=== PATIENT | male | born 1990 | race African-American/Black ===

== ENCOUNTER 2017-04-05 17:43 | Inpatient (IN) | payer OTHER ==
[~2017-04-05] VITALS: Ht 193 cm; Wt 86.2 kg
--- NOTE | ~2017-04-05 | HC ---
[facility] [place] [address] CONSULTATION Name: DAI LOVELL Room #: 432-P ADM IN M.R.#: [id number] Admission: 04/05/17 Attend Phys: Neal Hugo MD Discharge: Date of : 86 Report #: [id number] THIS REPORT FOR: //name// CC: Neal Bee [facility] physician/PCP REASON FOR CONSULTATION: I was asked to evaluate concerning flare up of hidradenitis suppurativa. HISTORY OF PRESENT ILLNESS: The patient was a 26-year-old with a 5-year history of hidradenitis suppurativa, mostly involving his axillary regions, but now has progressed down into his groin. He has previously undergone several surgeries with excision and skin grafting to his axilla regions. His groins flared up about a month or so ago. He has been seen by Dr. Kaur in General Surgery, [facility]. He was not able to assist with further surgery and he referred him to [facility]. He did place him on Augmentin and Bactrim. The patient states he has finished that about a week ago. No fever, chills or sweats. Continues to have increased pain and drainage in his groin. No fever, chills or sweats. REVIEW OF SYSTEMS: No cardiopulmonary, GI or complaints. ALLERGIES: None. MEDICATIONS: Now on vancomycin and Zosyn. PAST MEDICAL HISTORY: Hidradenitis and its subsequent treatments. FAMILY HISTORY: Noncontributory. SOCIAL HISTORY: He does smoke cigarettes. No significant alcohol intake. PHYSICAL EXAMINATION: VITAL SIGNS: Afebrile, hemodynamically stable. GENERAL: Alert, cooperative and pleasant, in no acute distress. HEENT: Unremarkable. CHEST: Clear. HEART: Regular. ABDOMEN: Soft and nontender. Axillary regions had previous skin grafting. No active skin lesions identified. In his groin, he has got multiple abscesses evident. There is purulent drainage from these regions. External genitalia, otherwise unremarkable. LABORATORY STUDIES: Blood cultures are negative today. Hemoglobin 12.8, white count 7.0, platelet count 232,000, differential unremarkable. Sodium 141, potassium 3.4, bicarbonate 31, creatinine 0.9, lactate 1.2, CRP 6. [address] [address] CONSULTATION Name: DAI LOVELL Room #: [facility] [place] .R.#: [id number] Admission: 04/05/17 Attend Phys: Neal Hugo MD Discharge: Date of : 86 Report #: [id number] IMPRESSION: Flare up of hidradenitis suppurativa. The patient will need further surgical debridement, IV antibiotic therapy and then further wound care. Would recommend surgical evaluation. We will culture his drainage. Continue with IV antibiotic therapy and begin Hibiclens showers. By: [id number] Ryan Bee MD /lei
[2017-04-05 17:56] VITALS: BP 125/75
[2017-04-05] MEDS ORDERED: BACTRIM DS TAB1 EACH (18:12)
[2017-04-05] MEDS ORDERED: CIPRO500 MG PO (18:13)
[2017-04-05] MEDS ORDERED: DOXYCYCLINE 10100 MG (18:13)
[2017-04-05] MEDS ORDERED: KEFLEX500 M1 PO (18:15)
[2017-04-05 19:26] LABS: ABSOLUTE NEUTROPHILS 5.4 thou/uL (1.4-8.2); BASOPHILS 0.7 % (0.0-2.0); EOSINOPHILS 0.7 % (0.0-3.0); HEMATOCRIT 42.7 % (42.0-52.0); LYMPHOCYTES 16.3 % (24.0-44.0); MCH 26.6 pg (26.0-34.0); MCHC 32.9 g/dL (28.0-37.0); MONOCYTES 8.6 % (1.0-8.0); PLATELET COUNT 257 thou/uL (150-400); POLYS 73.7 % (36.0-66.0); RBC 5.27 mil/uL (4.50-6.00); RDW 14.5 % (10.5-14.5); WBC 7.3 thou/uL (4.0-11.0)
[2017-04-05 19:27] LABS: MANUAL DIFF NO
[2017-04-05 19:37] LABS: CALCIUM 9.8 mg/dL (8.5-10.1); POTASSIUM 3.5 mmol/L (3.5-5.1)
[2017-04-05 20:44] VITALS: BP 123/88
[2017-04-05 22:19] VITALS: BP 116/86
[2017-04-06 05:25] VITALS: BP 106/74
[2017-04-06 06:07] LABS: HEMATOCRIT 39.6 % (42.0-52.0); HEMOGLOBIN 12.8 gm/dL (14.0-18.0); MCH 26.2 pg (26.0-34.0); MCHC 32.2 g/dL (28.0-37.0); MCV 81.5 fL (80.0-100.0); PLATELET COUNT 232 thou/uL (150-400); RBC 4.86 mil/uL (4.50-6.00); RDW 14.1 % (10.5-14.5)
[2017-04-06 06:24] LABS: CALCIUM 8.9 mg/dL (8.5-10.1); CREATININE 0.9 mg/dL (0.7-1.3); POTASSIUM 3.4 mmol/L (3.5-5.1)
[2017-04-06 06:31] LABS: MANUAL DIFF YES
[2017-04-06 09:00] LABS: ABSOLUTE NEUTROPHILS 4.5 thou/uL (1.4-8.2); PLATELET ESTIMATE NORMAL; TOTAL CELL COUNT 100
[2017-04-06 09:10] VITALS: BP 110/72
[2017-04-06 15:14] VITALS: BP 110/72
[2017-04-06] MEDS ORDERED: OXYCODONE HCL30 MG PO (15:31)
[2017-04-06 22:30] VITALS: BP 119/83
[2017-04-07 04:00] VITALS: BP 97/55
[2017-04-07 07:30] LABS: HEMATOCRIT 35.8 % (42.0-52.0); HEMOGLOBIN 11.9 gm/dL (14.0-18.0); MCH 26.9 pg (26.0-34.0); MCHC 33.3 g/dL (28.0-37.0); MCV 80.7 fL (80.0-100.0); RBC 4.43 mil/uL (4.50-6.00); RDW 14.2 % (10.5-14.5); WBC 5.7 thou/uL (4.0-11.0)
[2017-04-07 07:32] LABS: CALCIUM 8.6 mg/dL (8.5-10.1); CREATININE 0.9 mg/dL (0.7-1.3); POTASSIUM 3.7 mmol/L (3.5-5.1)
[2017-04-07 08:21] VITALS: BP 97/60
[2017-04-07 15:38] VITALS: BP 113/61
[2017-04-07 20:38] VITALS: BP 124/66
[2017-04-08 04:28] VITALS: BP 100/56
[2017-04-08 06:14] LABS: HEMOGLOBIN 11.3 gm/dL (14.0-18.0); MCH 26.5 pg (26.0-34.0); MCHC 32.3 g/dL (28.0-37.0); MCV 81.9 fL (80.0-100.0); RBC 4.28 mil/uL (4.50-6.00); RDW 14.1 % (10.5-14.5); WBC 4.7 thou/uL (4.0-11.0)
[2017-04-08 06:26] LABS: CALCIUM 8.7 mg/dL (8.5-10.1); CREATININE 0.9 mg/dL (0.7-1.3)
[2017-04-08 08:06] VITALS: BP 112/63
[2017-04-08] MEDS ORDERED: OXYCODONE HCL30 MG PO (13:52)
[2017-04-08] MEDS ORDERED: AUGMENTIN 875-1 EACH PO (13:55)
[2017-04-08] MEDS ORDERED: ZOFRAN ODT4 MG PO (14:03)
[2017-04-08 14:45] VITALS: BP 112/63
[2017-04-08 14:47] VITALS: BP 112/63
== END 2017-04-08 15:45 | disposition home or self-care (01) | DRG 607 ==
LOC: ER 17:43 → 4E 19:37 → EROBS 19:37 → 4E 20:36
PROVIDERS: Hospitalist; Nurse Practitioner Family; Physician Assistant
DX: L73.2 Hidradenitis suppurativa (principal); F17.290 Nicotine dependence, other tobacco product, uncomplicated; Z60.2 Problems related to living alone; Z79.899 Other long term (current) drug therapy
CPT/HCPCS: 10084

== ENCOUNTER 2017-08-14 08:55 | Emergency (ER) | payer OTHER ==
[~2017-08-14] VITALS: Ht 193 cm; Wt 81.7 kg
[~2017-08-14 08:55] MED LIST: AUGMENTIN 875-1 EACH PO; BACTRIM DS TAB1 EACH; CIPRO500 MG PO; DOXYCYCLINE 10100 MG; KEFLEX500 M1 PO; OXYCODONE HCL30 MG PO; ZOFRAN ODT4 MG PO
[2017-08-14 10:07] LABS: ABSOLUTE NEUTROPHILS 5.5 thou/uL (1.4-8.2); BASOPHILS 0.7 % (0.0-2.0); EOSINOPHILS 0.6 % (0.0-3.0); HEMATOCRIT 43.1 % (42.0-52.0); HEMOGLOBIN 14.2 gm/dL (14.0-18.0); LYMPHOCYTES 14.6 % (24.0-44.0); MCH 26.8 pg (26.0-34.0); MCHC 33.1 g/dL (28.0-37.0); MCV 80.9 fL (80.0-100.0); MONOCYTES 9.7 % (1.0-8.0); PLATELET COUNT 242 thou/uL (150-400); POLYS 74.4 % (36.0-66.0); RBC 5.32 mil/uL (4.50-6.00); WBC 7.5 thou/uL (4.0-11.0)
[2017-08-14 10:19] LABS: CALCIUM 9.8 mg/dL (8.5-10.1); POTASSIUM 3.4 mmol/L (3.5-5.1)
[2017-08-14 10:24] LABS: URINE BILIRUBIN 1+ (Negative); URINE BLOOD NEGATIVE (Negative); URINE CLARITY SL CLOUDY; URINE GLUCOSE-RANDOM* NEGATIVE (Negative); URINE KETONES 1+ (Negative); URINE LEUKOCYTES-REFLEX NEGATIVE (Negative); URINE NITRITE-REFLEX NEGATIVE (Negative); URINE PROTEIN (DIPSTICK) 1+ (Negative); URINE SPECIFIC GRAVITY 1.025 (1.005-1.035)
[2017-08-14 10:24] LABS: ALBUMIN 4.4 g/dL (3.4-5.0); TOTAL BILIRUBIN 0.6 mg/dL (<0.1-1.0); TOTAL PROTEIN 8.6 g/dL (6.4-8.2)
[2017-08-14 10:42] LABS: ICTOTEST (BILI CONFIRMATORY) Positive (Negative); URINE COLOR AMBER
[2017-08-14 10:46] LABS: BACTERIA-REFLEX None Seen /HPF (None Seen); CASTS None Seen /LPF (None Seen); CRYSTALS None Seen /LPF (None Seen); MUCUS >6 Heavy strn/LPF (None Seen); SQUAMOUS None Seen /LPF (0-3); URINE RBC 0-2 Rare /HPF (0-2); URINE WBC-REFLEX 0-5 Rare /HPF (0-5)
[2017-08-14] MEDS ORDERED: IBUPROFEN 600600 M1 PO (11:36)
[2017-08-14] MEDS ORDERED: HYDROCODONE-AP1 EAC6 PO (11:36)
[2017-08-14] MEDS ORDERED: AUGMENTIN 875-1 EACH PO (11:36)
[2017-08-14 11:46] VITALS: BP 122/78
== END 2017-08-14 11:46 | disposition home or self-care (01) ==
LOC: ER 08:55
PROVIDERS: Physician Assistant
DX: L73.2 Hidradenitis suppurativa (principal); F17.210 Nicotine dependence, cigarettes, uncomplicated; Z98.890 Other specified postprocedural states